=== PATIENT | female | born 1990 | race Caucasian/White ===

== ENCOUNTER → 2019-01-04 09:23 | Outpatient (CLI) | payer BC, SELFPAY ==
--- NOTE | 2019-01-04 09:29 | XR_ITS ---
XR knee RT 3V HISTORY: ITS.REASON: ACUTE RT KNEE PAIN' ORDERING PHYSICIAN: MARCO ANTONIO Adamson PATIENT AGE: 28 years COMPARISON: None FINDINGS: No fracture or dislocation. No lytic or blastic change. Normal mineralization. No significant arthritic changes evident. No other significant findings IMPRESSION: Negative Knee
== END ==
PROVIDERS: PCP Family Medicine; Visit Provider Physician Assistant
DX: M25.561 Pain in right knee (principal)
CPT/HCPCS: 73562

== ENCOUNTER → 2019-01-12 08:24 | Outpatient (CLI) | payer BC, SELFPAY ==
[2019-01-12 08:32] LABS: Microscopic, Urine URINE MICROSCOPIC (MICROSCOPIC)
[2019-01-12 08:56] LABS: Appearance,Urine CLEAR (Clear); Bilirubin,Urine Negative (Negative); Blood, Urine Negative (Negative); Color,Urine YELLOW (Yellow); Glucose,Urine (UA) Negative (Negative); Ketones,Urine Negative (Negative); Leukocyte Esterase,Urine TRACE (Negative); Nitrate,Urine Negative (Negative); PH,Urine 6.5 (5.0-8.5); Protein,Urine Negative (Negative); Specific Gravity, Urine 1.015 (1.005-1.030); Urobilinogen,Urine 0.2 EU/dl (0.2)
[2019-01-12 09:08] LABS: Bacteria,Urine 2+ /lpf
[2019-01-12 09:19] LABS: Basophils % 0.5 % (0.1-2.0); Eosinophils # 0.1 K/mm3 (0.0-0.4); Eosinophils % 2.1 % (0.1-12.0); Hematocrit 42.1 % (37.0-47.0); Hemoglobin 14.1 g/dL (12.2-16.2); Lymphocytes # 1.9 K/mm3 (0.7-4.5); Lymphocytes % 29.8 % (10-50); Mean Corpuscular HGB Conc 33.4 g/dL (31.8-35.4); Mean Corpuscular Hemoglobin 31.2 pg (27.0-31.2); Mean Corpuscular Volume 93.3 fl (81-99); Mean Platelet Volume 7.6 fl (7.4-10.4); Monocytes # 0.4 K/mm3 (0.1-1.0); Monocytes % 6.1 % (1.7-9.3); Neutrophils % 61.5 % (37.0-80.0); Platelet Count 339 K/mm3 (142-424); Red Blood Count 4.51 M/mm3 (4.20-5.40); Red Cell Distribution Width 13.3 % (11.5-17.5); White Blood Count 6.5 K/mm3 (4.8-10.8)
[2019-01-12 10:36] LABS: Alanine Aminotransferase 25 U/L (12-78); Albumin/Globulin Ratio 0.9 (1.1-1.8); Alkaline Phosphatase 64 U/L (46-116); Anion Gap 10.5 mEq/L (5-15); Aspartate Amino Transferase 7 U/L (15-37); Bilirubin,Total 0.4 mg/dL (0.2-1.0); Blood Urea Nitrogen 12 mg/dL (7-18); Calcium 8.7 mg/dL (8.5-10.1); Carbon Dioxide 26 mmol/L (21.0-32.0); Chloride 106 mmol/L (98-107); Creatine Kinase 25 U/L (26-192); Creatinine,Serum 0.61 mg/dL (0.55-1.02); Estimated Glomerular Filt Rate 118 ml/min (>60); GFR (African American) 142 ML/MIN (>60); Gamma Glutamyl Transpeptidase 19 U/L (5-55); Globulin 3.4 gm/dl (1.3-3.2); Glucose 84 mg/dL (74-106); Lactate Dehydrogenase 128 U/L (82-234); Phosphorous 3.4 mg/dL (2.4-4.9); Potassium 4.5 mmoL/L (3.5-5.1); Sodium 138 mmol/L (136-145); Total Protein,Serum 6.4 gm/dL (6.4-8.2); Uric Acid 3.2 mg/dL (2.6-7.2)
[2019-01-12 11:09] LABS: Hemoglobin A1C 4.9 % (0.0-7.0)
[2019-01-12 11:51] LABS: Creatinine,Urine Random 88 mg/dL (20-320); Total Protein,Urine Random 10.3 mg/dL (0.0-11.9)
== END ==
PROVIDERS: Visit Provider Transplant Surgery
DX: Z00.5 Encounter for examination of potential donor of organ and tissue (principal)
CPT/HCPCS: 36415; 80053; 81001; 82550; 82570; 82977; 83036; 83615; 84100; 84155; 84550; 85025; 86900; 86901; 87086

== ENCOUNTER 2019-01-17 16:46 | Outpatient (RCR) | payer BC, SELFPAY | END 2019-01-17 16:55 | disposition home or self-care (01) | LOC: PT 16:46 | PROVIDERS: Visit Provider Physician Assistant | DX: M25.561 Pain in right knee (principal) | CPT/HCPCS: 97163 ==

== ENCOUNTER → 2019-02-06 08:46 | Outpatient (CLI) | payer BC, SELFPAY ==
--- NOTE | 2019-02-06 08:50 | XR_ITS ---
XR knee RT 4V HISTORY: ITS.REASON: right knee pain ORDERING PHYSICIAN: Jimmy Feng MD PATIENT AGE: 28 years COMPARISON: 01/04/2019 FINDINGS: No fracture or dislocation. No lytic or blastic change. Normal mineralization. No significant arthritic changes evident. No other significant findings IMPRESSION: Negative Knee
== END ==
PROVIDERS: PCP Family Medicine; Visit Provider Orthopaedic Surgery
DX: M25.561 Pain in right knee (principal)
CPT/HCPCS: 73564

== ENCOUNTER → 2019-02-16 13:26 | Outpatient (CLI) | payer BC, SELFPAY ==
--- NOTE | 2019-02-16 13:27 | MR_ITS ---
MR knee RT wo con Ordering Physician: Jimmy Feng MD Patient Age: 28 years: Female HISTORY: ITS.REASON: evaluate for meniscal tear Right knee pain since November.. Pain at the lateral aspect of right knee. No known injury. TECHNIQUE: Multiplanar multisequence imaging on 1.5 Lilliana Siemens, MRI COMPARISON :X-ray right knee 02/06/2019 FINDINGS : Re: Lateral Knee Pain.: Lateral meniscus appears intact. No good evidence of meniscal tear. The Lateral compartment is well-maintained. Cartilage well-maintained.No osteochondral defect. No reactive bone signal changes. Medial compartment and medial meniscus appear intact as well. Normal relationships. Borderline to mild thinning question/suggestion posterior patella in its midportion and extending towards medial facet as suggested on axial slice 11. However less convincing on the sagittal T2 weighted image slice 14 Patellar tendon and quadriceps tendon appears satisfactory. Medial collateral ligament and lateral collateral ligament appear satisfactoryqq. ACL and PCL intact. The fibular, tibial articulation satisfactory. Popliteus tendon overall satisfactory some areas of upper normal signal along its course. IMPRESSION: ...... 1. No prominent findings.No meniscal tear. 2. Cartilage well-maintained both the lateral and medial compartment No osteochondral defects 3. Perhaps mild chondral thinningposterior patella-midportion and extending towards facet is seen on axial image 11 Scant increased joint fluid most notable here. 4. Cruciate and collateral ligaments intact
== END ==
PROVIDERS: PCP Family Medicine; Visit Provider Orthopaedic Surgery
DX: M25.561 Pain in right knee (principal); G89.29 Other chronic pain
CPT/HCPCS: 73721

== ENCOUNTER → 2019-06-19 13:10 | Outpatient (CLI) | payer BC, SELFPAY ==
--- NOTE | 2019-06-19 13:20 | US_ITS ---
PROCEDURE: US SOFT TISSUE HEAD AND NECK CLINICAL INDICATION: ENLARGED LYMPH NODE IN NECK COMPARISON: No exams were available for comparison FINDINGS: General survey is performed of the left neck. Several hypoechoic lymph nodes are present ranging in size from 1.6 x 0 point 6 cm to 2.7 x 1 cm. In the right neck there is a node which measures up to 1.8 by 0.7 cm. The submandibular glands and parotid glands have an unremarkable appearance. IMPRESSION: Cervical adenopathy. Consider CT for more thorough evaluation if the nodes do not decrease in size with treatment Dictated by: Sam Yeung MD 06/19/2019 17:17 Electronically signed by Sam Yueng MD in [place] 06/19/2019 17:17
== END ==
PROVIDERS: PCP Family Medicine; Visit Provider Physician Assistant
DX: R59.0 Localized enlarged lymph nodes (principal)
CPT/HCPCS: 76536

== ENCOUNTER → 2019-06-21 16:43 | Outpatient (CLI) | payer BC, SELFPAY ==
[2019-06-23 13:49] LABS: Antistreptolysin O Ab 425.3 IU/mL (0.0-200.0); Cytomegalovirus (CMV) Ab, IgG <0.60 U/mL (0.00-0.59); Cytomegalovirus (CMV) Ab, IgM <30.0 AU/mL (0.0-29.9)
[2019-06-23 15:38] LABS: EBV Ab VCA, IgG <18.0 U/mL (0.0-17.9); EBV Ab VCA, IgM <36.0 U/mL (0.0-35.9)
== END ==
PROVIDERS: Visit Provider Physician Assistant
DX: R59.0 Localized enlarged lymph nodes (principal)
CPT/HCPCS: 36415; 86060; 86644; 86645; 86665

== ENCOUNTER → 2019-06-26 10:15 | Outpatient (CLI) | payer BC, SELFPAY ==
--- NOTE | 2019-06-26 10:26 | CT_ITS ---
PROCEDURE: CT SOFT TISSUE NECK W CON CLINICAL HISTORY: CERVICAL LYMPHADENOPATHY COMPARISON: No exams were available for comparison TECHNIQUE: Oral Contrast: None IV Contrast: 75 cc Axial images obtained with sagittal and coronal reformats. All CT scans at the facility use one or more dose reduction, viz: automated exposure control, ma/kV adjustment per patient size (including targeted exams where dose is matched to indication, i.e. head), or iterative reconstruction technique. FINDINGS: Salivary glands are normal. The anterior aspect of the orbital globes are not in the field of view. The retro bulbar areas appear to be normal. Oral cavity structures and palatine tonsils are normal. The tongue base, epiglottis, laryngeal area and thyroid gland are normal. Airway structures are patent. Developmental finding of left vertebral artery arises from the aortic arch. Vessels are otherwise unremarkable. There are level 1 and level 2 lymph nodes bilaterally and on the left side there are level 3, level 4 and level 5 B lymph nodes. Some of these lymph nodes are round in shape with absence of the fatty hilum. The largest left to a lymph node shows a short axis diameter of 11.7 millimeters and the largest left 5 B lymph node measures 11.4 millimeters in short axis diameter. The lymph nodes are otherwise homogeneous with smooth margins. Visualized osseous structures are unremarkable. IMPRESSION: Lymph nodes as described above which are larger and more numerous on the left side. There are no other ancillary inflammatory changes or fluid collections. Etiology is nonspecific and metastatic disease, lymphoma or inflammatory reactive adenitis are possibilities. However considering size and ancillary findings I would suggest ultrasound-guided tissue sampling perhaps the larger left 5 B lymph node on image number 66 from series 3. Dictated by: Arden Diaz 06/26/2019 11:32 Electronically signed by Arden Diaz in [place] 06/26/2019 11:32
== END ==
PROVIDERS: PCP Family Medicine; Visit Provider Physician Assistant
DX: R59.0 Localized enlarged lymph nodes (principal)
CPT/HCPCS: 70491; Q9967

== ENCOUNTER → 2019-07-10 12:36 | Outpatient (CLI) | payer BC, SELFPAY ==
--- NOTE | 2019-07-10 12:40 | US_ITS ---
PROCEDURE: US FNA LYMPH NODE CLINICAL INDICATION: ENLARGED LYMPH NODE Cervical adenopathy COMPARISON: US SOFT TISSUE HEAD AND NECK from 06/19/2019 CT SOFT TISSUE NECK W CON from 06/26/2019 TECHNIQUE: Following obtaining informed consent, using aseptic technique and local anesthesia with buffered lidocaine, fine-needle aspiration was performed of the nodule of interest using sonographic guidance. Four passes were made into the nodule with a 21-gauge needle. To the aspirates was foot in cytology solution and to of the aspirates was put in the RPMI solution. FINDINGS: CYTOLOGY: Polymorphous lymphocytes present. Please see pathology report IMPRESSION: Uneventful ultrasound-guided fine needle aspiration of lymph nodes in the left posterior neck showing polymorphous lymphocytes The patient tolerated the procedure well without evidence of immediate complications and left the ultrasound suite in stable condition. Dictated by: Sam Yeung MD 07/13/2019 09:30 Electronically signed by Sam Yeung MD in [place] 07/13/2019 09:30
== END ==
PROVIDERS: PCP Physician Assistant; Visit Provider Physician Assistant
DX: R59.0 Localized enlarged lymph nodes (principal)
CPT/HCPCS: 10005; 76942

== ENCOUNTER → 2019-08-06 15:55 | Outpatient (CLI) | payer BC, SELFPAY ==
--- NOTE | 2019-08-06 16:17 | ECG_ITS ---
APPROVED REPORT Exam: Resting ECG HR:69 bpm ECG Measurements Heart Rate 69 AXES CA 128 P 38 QRSd 78 QRS 31 QT 398 T 25 QTc 426 <Conclusion> Normal sinus rhythm Normal ECG Electronically signed by : Yousif Billingsley, 08/07/2019 15:27:10
[2019-08-06 16:40] LABS: Basophils % 0.6 % (0.1-2.0); Eosinophils % 0.4 % (0.1-12.0); Hematocrit 41.6 % (37.0-47.0); Hemoglobin 13.9 g/dL (12.2-16.2); Lymphocytes # 1.4 K/mm3 (0.7-4.5); Lymphocytes % 44.6 % (10-50); Mean Corpuscular HGB Conc 33.5 g/dL (31.8-35.4); Mean Corpuscular Hemoglobin 29.7 pg (27.0-31.2); Mean Corpuscular Volume 88.6 fl (81-99); Mean Platelet Volume 8.2 fl (7.4-10.4); Monocytes # 0.3 K/mm3 (0.1-1.0); Monocytes % 8.4 % (1.7-9.3); Neutrophils # 1.5 K/mm3 (1.8-7.8); Platelet Count 265 K/mm3 (142-424); Red Blood Count 4.69 M/mm3 (4.20-5.40); Red Cell Distribution Width 12.6 % (11.5-17.5); White Blood Count 3.2 K/mm3 (4.8-10.8)
[2019-08-06 18:43] LABS: HCG,Quantitative 0 mIU/mL
== END ==
PROVIDERS: Visit Provider Otolaryngology
DX: Z01.818 Encounter for other preprocedural examination (principal); R59.0 Localized enlarged lymph nodes
CPT/HCPCS: 36415; 84702; 85025; 93005

== ENCOUNTER → 2019-08-30 14:24 | Outpatient (CLI) | payer BC, SELFPAY ==
--- NOTE | 2019-08-30 14:30 | XR_ITS ---
PROCEDURE: XR CHEST 2V CLINICAL HISTORY: swollen lymph nodes COMPARISON: No exams were available for comparison FINDINGS: The cardiomediastinal silhouette and pulmonary vascularity are within normal limits. The lungs are clear without infiltrates, suspicious nodules, or pleural effusions. No acute bony abnormalities. IMPRESSION: No acute findings. Dictated by: Sam Yeung MD 08/30/2019 14:46 Electronically signed by Sam Yeung MD in [place] 08/30/2019 14:46
[2019-08-30 15:06] LABS: Basophils % 0.4 % (0.1-2.0); Hematocrit 37.9 % (37.0-47.0); Hemoglobin 12.8 g/dL (12.2-16.2); Lymphocytes # 1.3 K/mm3 (0.7-4.5); Lymphocytes % 41.9 % (10-50); Mean Corpuscular HGB Conc 33.7 g/dL (31.8-35.4); Mean Platelet Volume 8.5 fl (7.4-10.4); Monocytes # 0.2 K/mm3 (0.1-1.0); Monocytes % 7.3 % (1.7-9.3); Neutrophils # 1.5 K/mm3 (1.8-7.8); Neutrophils % 49.4 % (37.0-80.0); Platelet Count 267 K/mm3 (142-424); Red Blood Count 4.26 M/mm3 (4.20-5.40); Red Cell Distribution Width 13.1 % (11.5-17.5)
[2019-09-03 15:09] LABS: Antichromatin Antibodies <0.2 AI (0.0-0.9); RA Latex Turbid. 15.6 IU/mL (0.0-13.9); RNP Antibodies 0.2 AI (0.0-0.9); Sjogren's Anti-SS-A <0.2 AI (0.0-0.9); Sjogren's Anti-SS-B <0.2 AI (0.0-0.9)
[2019-09-04 14:45] LABS: Anti-DNA (DS) Ab Qn <1 IU/mL (0-9)
[2019-09-09 13:48] LABS: APTT 26.6; Prothrombin Time 10.3; Thrombin Time 16.2
[2019-09-09 13:49] LABS: Anti-Cardiolipin Antibody IgG <10; Anti-Cardiolipin Antibody IgM 13; Beta-2 Glycoprotein I Ab, IgG <10; Beta-2 Glycoprotein I Ab, IgM <10
[2019-09-09 13:50] LABS: Beta-2 Glycoprotein I Ab, IgA <10
== END ==
PROVIDERS: PCP Family Medicine; Visit Provider Otolaryngology
DX: L04.9 Acute lymphadenitis, unspecified (principal); R59.9 Enlarged lymph nodes, unspecified
CPT/HCPCS: 36415; 71046; 85025; 85597; 85598; 85610; 85613; 85670; 85730; 86146; 86147; 86225; 86235; 86431

== ENCOUNTER → 2019-10-01 09:56 | Outpatient (CLI) | payer BC, SELFPAY ==
--- NOTE | 2019-10-01 10:05 | CT_ITS ---
PROCEDURE: CT ABDOMEN PELVIS WO/W CON CLINICAL INDICATION: SWELLING LYMPH NODES Adenopathy COMPARISON: No exams were available for comparison TECHNIQUE: IV Contrast: 75ML OPTIRAY 350 Oral Contrast none Axial images obtained with sagittal and coronal reformats. All CT scans at the facility use one or more dose reduction, viz: automated exposure control, ma/kV adjustment per patient size (including targeted exams where dose is matched to indication, i.e. head), or iterative reconstruction technique. FINDINGS: LOWER THORAX: No acute finding None ABDOMEN & PELVIS: There is a small hypodensity in the right hepatic lobe inferiorly at 4 mm nonspecific too small to categorize. Liver is otherwise unremarkable. There is some curvilinear density in the fundus of the gallbladder which could be due to stones and/or sludge in may be better evaluated ultrasound a clinically desired. Spleen, adrenal glands, pancreas, and kidneys have an unremarkable appearance. There is no evidence of abdominal or retroperitoneal adenopathy. No pelvic adenopathy. No enlarged inguinal nodes. There is a mild amount of retained colonic feces. No evidence of appendicitis, intestinal obstruction, or free air. No acute bony anomaly. IMPRESSION: No acute finding. No adenopathy apparent. Subtle hypodensity right hepatic lobe too small to categorize and could be due to small cyst at 4 mm. Possible cholelithiasis Dictated by: Sam Yeung MD 10/02/2019 11:58 Electronically signed by Sam Yeung MD in [place] 10/02/2019 11:58
--- NOTE | 2019-10-01 10:05 | CT_ITS ---
PROCEDURE: CT CHEST WO/W CON CLINCAL INDICATION: SWOLLEN LYMPH NODES Lymphadenopathy the COMPARISON: CT ABDOMEN PELVIS WO/W CON from 10/01/2019 TECHNIQUE: IV Contrast: 75ml Optiray 350 Axial images obtained with sagittal and coronal reformats. All CT scans at the facility use one or more dose reduction, viz: automated exposure control, ma/kV adjustment per patient size (including targeted exams where dose is matched to indication, i.e. head), or iterative reconstruction technique. FINDINGS: Residual thymic tissue noted within the mediastinum. Normal heart size. Pre and post enhanced images show no evidence hilar or mediastinal adenopathy. No axillary adenopathy. The the the there nodularity in the left upper lobe measuring 5 mm associated with an adjacent linear opacity. The remaining lungs are clear. No central obstructing lesions. Upper abdominal images are unremarkable. There are mild degenerative changes in the thoracic spine. No acute bony anomalies. IMPRESSION: 1. No mediastinal or hilar or axillary adenopathy. 2. 5 mm left upper lobe nodule so shaded with a linear opacity nonspecific and could be postinflammatory scarring. Six-month follow-up may confirm stability. Dictated by: Sam Yeung MD 10/02/2019 11:47 Electronically signed by Sam Yeung MD in [place] 10/02/2019 11:47
== END ==
PROVIDERS: PCP Family Medicine; Visit Provider Internal Medicine Medical Oncology
DX: R59.0 Localized enlarged lymph nodes (principal)
CPT/HCPCS: 71270; 74178; Q9967

== ENCOUNTER 2019-10-04 12:26 | Day surgery (SDC) | payer BC, SELFPAY ==
[2019-10-04 12:44] VITALS: BMI 31.8
[2019-10-04 12:57] VITALS: BP 104/65; PULSE 84; RESP 18; TEMP 36.7; O2SAT 100
[2019-10-04 12:57] LABS: Urine Pregnancy, HCG Qual. Negative (Negative)
--- NOTE | 2019-10-04 16:21 | SUR.PREOP ---
Pt. was pre-op'd per protocol, When Dr. Collins assessed pt. he believed she did not need the bone marrow biopsy at this time. As a result the procedure was cancelled.
== END 2019-10-04 16:30 ==
LOC: OUTP 12:26
PROVIDERS: Internal Medicine Medical Oncology; Pathology Anatomic Pathology & Clinical Pathology; PCP Family Medicine; Visit Provider Pathology Anatomic Pathology & Clinical Pathology
DX: Z53.8 Procedure and treatment not carried out for other reasons (principal)
CPT/HCPCS: 38221; 81025

== ENCOUNTER → 2019-11-12 16:38 | Outpatient (CLI) | payer BC, SELFPAY ==
[2019-11-12 16:42] LABS: Microscopic, Urine URINE MICROSCOPIC (MICROSCOPIC)
[2019-11-12 16:52] LABS: Appearance,Urine CLEAR (Clear); Bilirubin,Urine Negative (Negative); Blood, Urine Negative (Negative); Color,Urine YELLOW (Yellow); Glucose,Urine (UA) Negative (Negative); Ketones,Urine Negative (Negative); Leukocyte Esterase,Urine TRACE (Negative); Nitrate,Urine Negative (Negative); Protein,Urine Negative (Negative); Specific Gravity, Urine 1.015 (1.005-1.030); Urobilinogen,Urine 0.2 EU/dl (0.2)
[2019-11-12 17:06] LABS: Bacteria,Urine Trace /lpf; Squamous Epithelial Cell,Urine Occasional #/hpf (0-5)
== END ==
PROVIDERS: Visit Provider Internal Medicine
DX: R76.8 Other specified abnormal immunological findings in serum (principal)
CPT/HCPCS: 81001

== ENCOUNTER → 2019-11-16 13:17 | Outpatient (CLI) | payer BC, SELFPAY ==
[2019-11-16 13:55] LABS: Basophils % 0.5 % (0.1-2.0); Eosinophils % 0.7 % (0.1-12.0); Hemoglobin 13.9 g/dL (12.2-16.2); Lymphocytes # 1.7 K/mm3 (0.7-4.5); Lymphocytes % 29.4 % (10-50); Mean Corpuscular HGB Conc 31.6 g/dL (31.8-35.4); Mean Corpuscular Hemoglobin 29.5 pg (27.0-31.2); Mean Corpuscular Volume 93.3 fl (81-99); Monocytes # 0.4 K/mm3 (0.1-1.0); Neutrophils # 3.7 K/mm3 (1.8-7.8); Neutrophils % 62.4 % (37.0-80.0); Platelet Count 303 K/mm3 (142-424); Red Blood Count 4.72 M/mm3 (4.20-5.40); Red Cell Distribution Width 13.6 % (11.5-17.5); White Blood Count 5.9 K/mm3 (4.8-10.8)
== END ==
PROVIDERS: Visit Provider Internal Medicine Medical Oncology
DX: D72.819 Decreased white blood cell count, unspecified (principal)
CPT/HCPCS: 36415; 85025

== ENCOUNTER 2020-01-07 16:14 | Emergency (ER) | payer BC, SELFPAY ==
[2020-01-07 16:22] VITALS: BMI 32.9
[2020-01-07 16:29] VITALS: BP 113/66; PULSE 87; RESP 20; TEMP 36.7; O2SAT 99; BMI 32.9
[2020-01-07 16:35] LABS: Apearance,Urine Cloudy (Clear); Color,Urine Yellow (Yellow); PH,Urine 5.5 (5.0-8.5)
[2020-01-07 16:36] LABS: Bilirubin,Urine Negative (Negative); Blood, Urine Negative (Negative); Glucose,Urine (UA) Negative (Negative); Ketones,Urine Negative (Negative); Protein,Urine Negative (Negative); UTC Leukocyte Esterase,Urine 1+ (Negative); UTC Nitrate,Urine Negative (Negative); Urobilinogen,Urine 0.2 EU/dl (0.2)
--- NOTE | 2020-01-07 16:41 | HMH.EDUTC ---
[facility] – [place] Disposition Clinical Impression: UTI (urinary tract infection) Qualifiers: Urinary tract infection type: site unspecified Hematuria presence: without hematuria Qualified Code(s): N39.0 - Urinary tract infection, site not specified Disposition: Home, Self-Care Condition on Discharge: Good Instructions: DI for Urinary Tract Infection (UTI), Urinary Tract Infection, Nitrofurantoin Additional Instructions: *Increase fluids. Water not Soda or Tea *Start antibiotic immediately and be sure to take as ordered for the FULL length of time although you should start to see improvement over the next 48 hours *Pyridium as needed Remember this medication will turn your urine [place]. This is normal but it will stain what ever it gets on *You should not use Pyridium for more than 48 hours. If so , follow up with your primary physician to review urine culture and ensure that antibiotic is adequate for infection *Be SURE to follow up anytime for new or worsening symptoms with your family doctor. AND in 48 hours for urine culture results with your family doctor, if you do not have a doctor then you may call back to the [facility] for urine culture results and further treatment. We do recommend that you choose and establish care with a Primary Care Physician. AND follow up with them in 10-14 days to repeat UA to ensure infection is resolved and blood no longer present *Be sure to let your PCP know that we sent urine cultures from the [facility] so they can follow up to ensure that you area the on the correct antibiotic Call your doctor office and make appointment for 48 hours (2 days from today) to follow up and get the results of your urine culture and further treatment Take medication as prescribed Return if needed Make sure to follow up for culture results and further treatment if needed Prescriptions: Nitrofurantoin Monohyd/M-Cryst [Macrobid 100 mg Capsule] 100 mg PO BID 10 Days #20 cap Transmission Status: Pending to [id number] Referrals: Sebastian Fritz MD [Primary Care Provider] - As needed Time of Disposition: 16:47 Medical Decision Making - Naun Inquiry Pt receiving controlled substance: No Naun was queried for this patient: No Vital Signs: 01/07/20 16:29 Temperature 98.1 F Temperature Source Oral Pulse Rate [Right Brachial] 87 Respiratory Rate 20 Blood Pressure [Right Arm] 113/66 Blood Pressure Mean [Right Arm] 81 Blood Pressure Source [Right Arm] Automatic Cuff Blood Pressure Position [Right Arm] Sitting 02 Sat by Pulse Oximetry 99 Oxygen Delivery Method Room Air - Lab Data Lab results reviewed: Yes: I reviewed the patient's lab results. Lab Results 01/07/20 16:22: Urine Color Yellow, Urine Appearance Cloudy, Urine pH 5.5, Ur Specific [place] 1.010, Urine Protein Negative, Urine Glucose (UA) Negative, Urine Ketones Negative, Urine Blood Negative, Urine Nitrate Negative, Urine Bilirubin Negative, Urine Urobilinogen 0.2, Ur Leukocyte Esterase 1+ A [facility] [place] HPI - General Stated complaint: Posible UTI Time Seen by Provider: 01/07/20 16:41 Mode of Arrival: Ambulatory Source of Information: Patient Limitations: No Limitations Description of Symptoms (Recalled from Triage Doc. by RN): PATIENT C/O BURNING WITH URINATION AND LOWER BACK/FLANK PAIN SINCE THIS MORNING; DENIES FEVER HEENT Symptoms (Recalled from RN notes): No Resp Symptoms (Recalled from RN notes): No Skin Symptoms (Recalled from RN notes): No MS Symptoms (Recalled from RN notes): No Functional Status (Recalled from RN notes): WNL - History of Present Illness Provider Complaint: Patient state that she woke up this morning having achy like pain in her lower back area like she has had before with UTI States that she took some Motrin and it didnt help so she was pretty sure that she was getting a UTI States that as the day on she continued to have pain on and off in her lower back area Denies injury, denies radiation of pain noticed that her urine looked dark
[2020-01-07 16:51] VITALS: BP 113/66; PULSE 87; RESP 20; TEMP 36.7; O2SAT 99
== END 2020-01-07 16:52 | disposition home or self-care (01) ==
PROVIDERS: Emergency Provider Nurse Practitioner; PCP Family Medicine
DX: N30.00 Acute cystitis without hematuria (principal); I48.91 Unspecified atrial fibrillation; J45.909 Unspecified asthma, uncomplicated; Z88.0 Allergy status to penicillin
CPT/HCPCS: 81003; 87086; 99201

== ENCOUNTER 2020-08-04 18:25 | Emergency (ER) | payer BC, SELFPAY ==
[2020-08-04 18:55] VITALS: BP 111/78; PULSE 68; RESP 20; TEMP 37; O2SAT 100; BMI 34.3
--- NOTE | 2020-08-04 19:15 | HMH.EDUTC ---
[facility] – [place] Disposition Clinical Impression: Sinusitis Qualifiers: Sinusitis location: unspecified location Chronicity: unspecified Qualified Code(s): J32.9 - Chronic sinusitis, unspecified Disposition: Home, Self-Care Condition on Discharge: Good Instructions: Sinusitis, Sinus Headache, DI for Sinusitis, Azithromycin Additional Instructions: *Monitor Temp, Over the counter Motrin or Tylenol as directed/as needed Tylenol every 4 hours and Motrin every 6 hours (as long as your family doctor has told you that you can take it) for fever or pain. and straight to ER if unable to lower temp less than 101.0 after medication given *Warm salt water gargles may help to soothe the throat *Throat Lozenges *Warm fluids like tea with honey may help to soothe the throat *Sleep elevated *Humidifier/Vaporizer *Flonase 2 sprays in each nostril daily but be aware that it may take 2-3 days before you notice improvement Follow up IMMEDIATELY for new or worsening symptoms or no Noticeable improvement over the next 48-72 hours. 911 for difficulty breathing or swallowing Prescriptions: Fluticasone Propionate [Flonase 50mcg nasal spray 16gm] 1 - 2 spr NS DAILY #1 bottle [facility] methylPREDNISolone [Medrol 4mg tab] 4 mg PO DIRECTED #21 tab Transmission Status: [facility] Azithromycin [Z-Joaquin 250mg Tab] 250 mg PO DIRECTED #6 tab Transmission Status[facility] Referrals: Sebastian Fritz MD [Primary Care Provider] - Time of Disposition: 19:19 Medical Decision Making - Naun Inquiry Pt receiving controlled substance: No Naun was queried for this patient: No Vital Signs: 08/04/20 18:55 Temperature 98.6 F Temperature Source Oral Pulse Rate [Right Brachial] 68 Respiratory Rate 20 Blood Pressure [Right Arm] 111/78 Blood Pressure Mean [Right Arm] 89 Blood Pressure Source [Right Arm] Automatic Cuff Blood Pressure Position [Right Arm] Sitting 02 Sat by Pulse Oximetry 100 Oxygen Delivery Method Room Air [facility] [place] HPI - General Stated complaint: possible sinus infection Time Seen by Provider: 08/04/20 19:15 Mode of Arrival: Ambulatory Source of Information: Patient Limitations: No Limitations Description of Symptoms (Recalled from Triage Doc. by RN): PATIENT C/O HEADACHE, CONGESTION AND SINUS PRESSURE X 2 WEEKS HEENT Symptoms (Recalled from RN notes): Yes Resp Symptoms (Recalled from RN notes): No Skin Symptoms (Recalled from RN notes): No MS Symptoms (Recalled from RN notes): No Functional Status (Recalled from RN notes): WNL - History of Present Illness Provider Complaint: Patient states that she has been having sinus pain and pressure for about 2 weeks States that she gets a sinus infection about this time every year and has to come in and get medication States that she feels the pressure behind her eyes and has yellowish green mucous - Related Data Home Medications Medication Instructions Recorded Confirmed norethindrone 1 mg-ethinyl 1 tab PO DAILY tab 11/16/19 08/04/20 estradiol 20 mcg (21)-iron 75 mg (7) tablet Previous Rx's Medication Instructions Recorded Azithromycin [Z-Joaquin 250mg Tab] 250 mg PO DIRECTED #6 tab 08/04/20 Fluticasone Propionate [Flonase 1 - 2 spr NS DAILY #1 bottle 08/04/20 50mcg nasal spray 16gm] methylPREDNISolone [Medrol 4mg 4 mg PO DIRECTED #21 tab 08/04/20 tab] Allergies Allergy/AdvReac Type Severity Reaction Status Date / Time Penicillins Allergy Verified 12/10/19 15:50 - Worker's Comp Is this a Worker's Comp case?: Yes [facility] History - Hepatitis A Screen Drug use history?: No High risk sexual behaviors?: No History of sexually transmitted infection?: No Currently employed?: No Childcare worker?: No Do you have indoor plumbing?: Yes Do you have electricity?: Yes Attestation statement:: This patient has been screened for Hepatitis A risk factors. I
[2020-08-04 19:27] VITALS: BP 111/78; PULSE 68; RESP 20; TEMP 37; O2SAT 100
== END 2020-08-04 19:39 | disposition home or self-care (01) ==
PROVIDERS: Emergency Provider Nurse Practitioner; PCP Family Medicine
DX: J32.9 Chronic sinusitis, unspecified (principal); J45.909 Unspecified asthma, uncomplicated
CPT/HCPCS: 99201

== ENCOUNTER 2022-08-10 17:20 | Emergency (ER) | payer BC, SELFPAY ==
[2022-08-10 18:20] VITALS: BP 129/82; PULSE 69; RESP 18; TEMP 36.7; O2SAT 98; BMI 32.8
--- NOTE | 2022-08-10 18:22 | EXP.UTC ---
Discharge Plan Disposition Patient Disposition: Home, Self-Care Condition: Good Prescriptions Prescriptions: New azithromycin [Zithromax] 250 mg tablet 250 mg PO UD DOSE PK Qty: 6 0RF Rx Instructions: Take two (2) tablets today, then one (1) tablet days #2 thru #5 methylprednisolone 4 mg Tablets,Dose Pack 4 mg PO DIRECTED Qty: 21 0RF lxuhjmvoignyebs-ylxuvvivu-VD [Bromfed DM] 2-30-10 mg/5 mL Syrup 5 ml PO Q6H PRN (Reason: Cough) Qty: 240 0RF No Action norethindrone-e.estradiol-iron 1 mg-20 mcg (21)/75 mg (7) tablet 1 tab PO DAILY azithromycin 250 MG tablet 250 mg PO DIRECTED Qty: 6 0RF Rx Instructions: Take two (2) tablets on day #1, then one (1) tablet day #2 thru #5 methylprednisolone 4 MG tablet 4 mg PO DIRECTED Qty: 21 0RF Rx Instructions: Take as directed on package instructions fluticasone propionate 120 SPR/BOT bottle 1 - 2 spr NS DAILY Qty: 1 0RF Rx Instructions: each nostril daily Referrals Follow up/Referrals: Sebastian Fritz MD [Primary Care Provider] - See instructions Activity Restrictions/Add. Instructions Additional Instructions/Restrictions: Drink plenty of fluids. Take tylenol or ibuprofen for pain or fever. Take the medications as directed. Follow up with your regular doctor. GO TO THE ER FOR ANY WORSENING SYMPTOMS Clinical Impressions Clinical Impression: Acute bronchitis, Viral syndrome Stand Alone Forms Stand Alone Forms: Work/School Release Instructions Patient Instructions: DI for Acute Bronchitis, DI for Viral Syndrome Discharge ED Provider: Eldon Sommers [facility] General Stated complaint: congestion, h/a, cough, sore throat, fever/chills Time Seen by Provider: 08/10/22 18:22 History of Present Illness Provider Complaint: She states that for the past 2 days she has had chest and sinus congestion, cough, low grade fever and malaise. Related Data Home Medications Medication Instructions Recorded Confirmed norethindrone 1 mg-ethinyl 1 tab PO DAILY control 11/16/19 08/04/20 estradiol 20 mcg (21)-iron 75 mg (7) tablet Previous Rx's Medication Instructions Recorded azithromycin 250 mg tablet 250 mg PO DIRECTED #6 tabs 08/04/20 fluticasone propionate 50 1 - 2 spr NS DAILY ##1 08/04/20 mcg/actuation nasal spray,suspension methylprednisolone 4 mg tablet 4 mg PO DIRECTED #21 tabs 08/04/20 azithromycin 250 mg tablet 250 mg PO UD DOSE PK #6 tabs 08/10/22 (Zithromax) irskoahgyrzpgiy-qrvrbdyiaojdjra-JM 5 ml PO Q6H PRN Cough #240 mL 08/10/22 2 mg-30 mg-10 mg/5 mL oral syrup (Bromfed DM) methylprednisolone 4 mg tablets in 4 mg PO DIRECTED #21 tabs 08/10/22 a dose pack Allergies Allergy/AdvReac Type Severity Reaction Status Date / Time Penicillins Allergy Verified 08/10/22 18:24 PFSH PFSH Social History Smoking Status: Never smoker second hand exposure: No alcohol intake: never substance use type: denies use current occupational status: other Travel in the last 8 weeks: None housing: house current occupation: [employer] current occupational exposures/hazards: No caffeine: No ROS Obtained: Yes All systems reviewed & no additional complaints except as documented Constitutional Constitutional: Reports chills and Reports fever(s) Eyes Eyes: Denies eye discharge ENT Ears, Nose, Mouth, and Throat: Reports as per HPI Cardiovascular Cardiovascular: Denies chest pain Respiratory Respiratory: Denies chest congestion and Reports cough Gastrointestinal Gastrointestingal: Reports nausea; Denies abdominal pain, constipation, cramping, diarrhea or vomiting Musculoskeletal Musculoskeletal: Denies arthralgias Integumentary/Breasts Skin/Breast: Denies rash Neurologic Neurologic: Denies paresthesias Physical Exam General General appearance: alert and in no apparent distress Head H
[2022-08-10 19:02] LABS: UTC Strep Screen (Rapid) Negative (Negative)
[2022-08-10 19:03] LABS: UTC Influenza A Antigen Negative (Negative); UTC Influenza B Antigen Negative (Negative)
[2022-08-10 19:12] VITALS: BP 129/82; PULSE 69; RESP 18; TEMP 36.8
[2022-08-10 19:30] LABS: Adenovirus,PCR Not Detected (NotDetected); Bordetella Pertussis Not Detected (NotDetected); Chlamydophila Pneumoniae, PCR Not Detected (NotDetected); Coronavirus 19, PCR Not Detected (NotDetected); Coronavirus 229E Not Detected (NotDetected); Coronavirus NL63 Not Detected (NotDetected); Coronavirus OC43 Not Detected (NotDetected); Coronovirus HKU1,PCR Not Detected (NotDetected); Human Metapneumovirus Not Detected (NotDetected); Influenza A, PCR Not Detected (NotDetected); Influenza AH1, 2009 Not Detected (NotDetected); Influenza AH1, PCR Not Detected (NotDetected); Influenza AH3,PCR Not Detected (NotDetected); Influenza B, PCR Not Detected (NotDetected); Mycoplasma Pneumoniae, PCR Not Detected (NotDetected); Parainfluenza 1, PCR Not Detected (NotDetected); Parainfluenza 2, PCR Not Detected (NotDetected); Parainfluenza 3, PCR Not Detected (NotDetected); Parainfluenza 4, PCR Not Detected (NotDetected); Respiratory Syncytial Virus Not Detected (NotDetected); Rhinovirus/Enterovirus Not Detected (NotDetected)
== END 2022-08-10 19:21 | disposition home or self-care (01) ==
PROVIDERS: Emergency Provider Nurse Practitioner Family; PCP Family Medicine
DX: J20.9 Acute bronchitis, unspecified (principal)
CPT/HCPCS: 87581; 87632; 87798; 87804; 87880; 99212; C9803; G0463; U0003; U0005

== ENCOUNTER 2024-05-02 16:02 | Outpatient (CLI) | payer BC, SELFPAY ==
--- OUTSIDE RECORDS SUMMARY | 2024-05-02 16:04 | XMS_ITS | Patient Health Record ---
[facility] Organization [facility] Address [address] [facility] [address] [place] [id number] Care Team Providers Care Belt Sander Stone Name Role Phone Sebastian Fritz Primary Care Provider [phone] Francisco Stratton Unavailable [phone] Kasie Mao Unavailable [phone] ALLERGIES Allergen (clinical drug ingredient) Drug/Non Drug Allergy documented on EMR Reaction Allergy Type Onset Date Status amoxicillin Amoxicillin Unknown Drug Allergy Act lina Penicillin Unknown Drug Allergy Active RESULTS Component Value Reference Range Notes CBC Fingerstick (in house) ( Not yet reviewed by provider) Interpretation: Performing Lab: Notes/Report: wbc 6.5 3.5 - 10 lym 25.4% 15 - 50 mid 5.8% 2 - 15 gran 68.8% 35 - 80 rbc 4.71 3.5 - 5.5 hgb 14.5 11.5 - 16.5 hct 44.1 35 - 55 mcv 93.5 75 - 100 mch 30.7 25 - 35 mchc 32.9 31 - 38 plat 296 100 - 400 P-TSH reflex to FT4 Reviewed date:05/17/2023 03:24:43 PM Interpretation: Performing Lab: Notes/Report: Test performed by [facility] [address] [place] [address] , [address], [place] [address] Abelardo Phelps MD, Treating Plant Pumper CLIA: [id number] TSH reflex to FT4 1.22 0.43-5.25 mU/L P-Comprehensive Metabolic Pa alex (CMP) Reviewed date:05/17/2023 03:24:43 PM Interpretation: Performing Lab: Notes/Report: Test performed by [facility] [address] [place] [address] , [address], [place] [address] Abelardo Phelps MD, Treating Plant Pumper CLIA: [id number] Sodium 138 135-145 mEq/L Potassium 4.8 3.5-5.3 mEq/L Chloride 105 97-108 mEq/L CO2 23 22-32 mEq/L Glucose 96 65-99 mg/dL BUN 12 6-20 mg/dL Creatinine 0.95 0.50-1.00 mg/dL Calcium 8.9 8.6-10.4 mg/dL eGFR by Creatinine 82 >59 mL/min/1.73m2 Protein 6.6 6.0-8.3 g/dL Albumin 4.0 3.5-5.3 g/dL Alkaline Phosphatase 75 35-121 IU/L ALT (SGPT) 28 <5-47 IU/L AST (SGOT) 14 <5-40 IU/L Bilirubin, Total 0.3 <0.2-1.2 mg/dL A/G Ratio 1.5 1.1-2.5 mg/dL P-Pap Test Thin Prep Reviewed date:05/17/2023 03:24:43 PM Interpretation: Performing Lab: Notes/Report: Pap Test Thin Prep Negative for Intraepithelial Lesion or Malignancy Source: Cervical LMP: 05/03/23 Date Taken: 05/12/2023 Specimen Type: ThinPrep Vial Date Reported: 05/16/2023 Clinical Data: Hormones: loestrin BCPs Last Pap: normal (2019) Cytotech: KRISH Castellanos(ASCP) Date Reported: 05/16/2023 Specimen Adequacy: Satisfactory for evaluation Endocervical/transforma tion zone component present General Categorization: NEGATIVE FOR INTRAEPITHELIAL LESION OR MALIGNANCY The following tests have been ordered as requested and a separate report will be issued: HPV High Risk Screen (TMA) This specimen has been analyzed by the ThinPrep Imaging System, an interactive computer system which assists the lab in the screening of ThinPrep Pap Test slides. Following imaging, the slide was reviewed by a Cloth Bale Header and/or Pathologist. End of Report Technical services provided by [facility], [facility], d/b/a [address] [place] [address] MD, Treating Plant Pumper. Case reviewed and diagnosis rendered at [facility], [facility], d/b/a [address] [place] [address] MD, Treating Plant Pumper. CONFIDENTIAL HPV High Risk Screen (TMA) Reviewed date:05/17/2023 03:24:43 PM Interpretation: Performing Lab: Notes/Report: HPV High Risk NOT DETECTED The human papillomavirus (HPV) High Risk Screen is an FDA-approved in-vitro amplified nucleic acid test for the qualitative detection of E6/E7 viral mRNA. Results should be correlated with patient presentation, history, cervical cytology and other clinical and laboratory findings. See [email or web address] /[email or web address]/[email or web address] d f for further information. Test performed by [facility], [facility], d/b/a [address] , [place] [address], Mindy Negro DO, Treating Plant Pumper. CBC Venipuncture (in house) Reviewed date:05/12/2023 01:00:34 PM Interpretation: Performing Lab: Notes/Report: wbc 6.2 3.5 - 10 lymph 19.5 15 - 50 mid 4.3 2 - 15 gran 76.2 35 - 80 rbc 4.24 3.5 - 5.5 hgb 13.0 11.5 - 16.5 hct 38.0 35 - 55 mcv 89.7 75 - 100 mch 30.6 25 - 35 mchc 34.1 31 - 38 platlet 363 100 - 400 REASON FOR REFERRAL No Information MEDICATIONS Medication SIG (Take, Route, Frequency, Duration) Notes Start Date End Date Status Contrave 8-90 MG 1 tablet in the am x 7 days, then 1 tab twice a day x 7 days, then 2 tab in the am and 1 tab in the pm x 7 days, then 2 tab twice a day Orally 02/08/2024 Active Microgestin 1.5/30 1.5-30 MG-MCG take 1 tablet by mouth once daily Orally Once a day for 30 day(s) Active Albuterol Sulfate HFA 108 (90 Base) MCG/ACT 1 puff Inhalation every 4 hrs, prn 05/02/2024 Active Bromfed DM 2-30-10 MG/5ML 5-10 mL Orally four times a day, prn 05/02/2024 Active Flonase Allergy Relief 50 MCG/ACT 1 spray in each nostril Nasally Once a day 05/02/2024 Active IMMUNIZATIONS Vaccine Route Administration Date Status Comme nts COVID 19 Telma Unknown 12/26/2020 Administered SOCIAL HISTORY Sex Assigned At : Social History Observation Description Sex Assigned At Unknown PROBLEMS Problem Type ICD Code Onset Dates Problem Status W/U Status Risk SNOMED Code Notes Problem BMI 33.0-33.9,adult (Z68.33) Active confirmed 122856198 Problem Irregular periods (N92.6) Active confirmed 90080401 Problem Obesity (BMI 30-39.9) (E66.9) Active confirmed 750275109 Problem Constipation, unspecified constipation type (K59.00) Active confirmed 85292762 Problem BMI 40.0-44.9, adult (Z68.41) Active confirmed 743196890 Problem Spotting (N92.0) Active confirmed 00007 05 VITAL SIGNS Heart Rate 104 /min 05/02/2024 Blood pressure diastolic 80 mm Hg 05/02/2024 Height 64 in 05/02/2024 Blood pressure systolic 112 mm Hg 05/02/2024 Weight 196.0 lbs 05/02/2024 BMI 33.64 kg/m2 05/02/2024 Encounters Encounter Location Date Provider Diagnosis [facility] [facility] [address] [place] [phone] 05/12/2023 Kasie Mao Routine physical examination Z00.00 ; Pap smear for cervical cancer screening Z12.4 and Rash and nonspecific skin eruption R21 [facility] [facility] [address] [place] [id number] 05/17/2023 Kasie Mao [facility] [facility] [address] [place], [place] [id number] 02/08/2024 Kasie Mao Routine physical examination Z00.00 ; Oral contraceptive pill surveillance Z30.41 and Obesity (BMI 30-39.9) E66.9 [facility] [address] [facility] [address] [place] [id number] 05/02/2024 Kasie Crowdy COVID-19 U07.1 ; Acu te bronchitis, unspecified organism J20.9 and Non-recurrent acute serous otitis media of both ears H65.03 ASSESSMENTS Encounter Date Diagnosis Assessment Notes Treatment Notes Treatment Clinical Notes 05/12/2023 Pap smear for cervical cancer screening (ICD-10 - Z12.4) 05/12/2023 Routine physical examination (ICD-10 - Z00.00) 05/02/2024 COVID-19 (ICD-10 - U07.1) 02/08/2024 Routine physical examination (ICD-10 - Z00.00) Healthy female, will have labs done at work in April. 02/08/2024 Oral contraceptive pill surveillance (ICD-10 - Z30.41) 05/02/2024 Acute bronchitis, unspecified organism (ICD-10 - J20.9) 05/12/2023 Rash and nonspecific skin eruption (ICD-10 - R21) 02/08/2024 Obesity (BMI 30-39.9 ) (ICD-10 - E66.9) 05/02/2024 Non-recurrent acute serous otitis media of both ears (ICD-10 - H65.03) PLAN OF TREATMENT Pending Test Test Name Order Date CXR 05/02/2024 CBC Fingerstick (in house) 05/02/2024 Next Appt Details Provider Name:Kasie Wallace Camron johnson, 05/02/2024 03:15:00 PM, [address] [facility], [address], [place], [place], [phone], Provider Name:Kasie Wallace Camron johnson, 08/08/2024 09:00:00 AM, [address] [facility], [address], [place], [place], [phone], Insurance Providers Payer Name Payer Address Payer Phone Subscriber Number Group Number Insured Name Patient Relationship to Insured Coverage Start Date Coverage End Date JESSICA ACUÑ[employer] [address] [place] [address] [id number] DONATO MORGAN Self - patient is the insured MEDICAL (GENERAL) HISTORY Surgical History Surgery Date(Month/Year) [place] Teeth Removal 03/01/12
--- OUTSIDE RECORDS SUMMARY | 2024-05-02 16:04 | XMS_ITS ---
[facility] [address] [place] [id number] Care Team Providers Care Material Liaison Name Role Phone [place] Sebastian Primary Care Provider Francisco Stratton Unavailable [phone] Kasie Mao Unavailable [phone] ALLERGIES Allergen (clinical drug ingredient) Drug/Non Drug [...] - 38 plat 296 100 - 400 REASON FOR VISIT possible ear infection MEDICATIONS Medication SIG (Take, Route, Frequency, Duration) [...] nostril Nasally Once a day 05/02/2024 Active VITAL SIGNS Weight 196.0 lbs 05/02/2024 Blood pressure systolic 112 mm Hg 05/02/20 24 Blood pressure diastolic 80 mm Hg 024 Heart Rate 104 /min 05/02/2024 Height 64 in 05/02/2024 BMI 33.64 kg/m2 05/02/2024 Encounters Encounter Location Date Provider Diagnosis [facility] [address] [place], [place] [phone] 05/02/2024 Kasie Mao COVID-19 U07.1 ; Acu te bronchitis, unspecified organism J20.9 and Non-recurrent acute serous otitis media of both ears H65.03 ASSESSMENTS Encounter Date Diagnosis Assessment Notes Treatment Notes Treatment Clinical Notes 05/02/2024 COVID-19 (ICD-10 - U07.1) 05/02/2024 Acute bronchitis, unspecified organism (ICD-10 - J20.9) 05/02/2024 Non-recurrent acute serous otitis media of both ears (ICD-10 - H65.03) PLAN OF TREATMENT Medication Medication Name Sig Start Date Stop Date Notes Albuterol Sulfate HFA 108 (9 0 Base) MCG/ACT 1 puff Inhalation every 4 hrs, prn 05/02/2024 Bromfed DM 2-30-10 MG/5ML 5-10 mL Orally four times a day, prn 05/02/2024 Flonase Allergy Relief 50 MCG/ACT 1 spray in each nostril Nasally Once a day 05/02/2024 Pending Test Test Name Order Date CXR 05/02/2024 CBC Fingerstick (in house) 05/02/2024 Next Appt Details Provider Name:Kasie johnson, 05/02/2024 03:15:00 PM, [address], [address], [place], [phone], Provider Name:Kasie Rodrigo Camron johnson, 08/08/2024 09:00:00 AM, [address], [address], [place], [place], [phone], History and Physical Notes * HPI (History of Present Illness) Category Sub-Category Detail Notes ENT/respiratory sore throat ear pain Short of Breath with exertion Chest Pain cough Fever
--- OUTSIDE RECORDS SUMMARY | 2024-05-02 16:04 | XMS_ITS ---
Author Organization [facility] Address [address] [facility] [place] 36 [facility] [address] [place] [id number] Care Team Providers Care Home Health Cna Name Role Phone [place] Sebastian Primary Care Provider Francisco Stratton Unavailable [phone] Kasie Mao Unavailable [phone] ALLERGIES Allergen (clinical drug ingredient) Drug/Non Drug Allergy documented on EMR Reaction Allergy Type Onset Date Status amoxicillin Amoxicillin Unknown Drug Allergy Act lina Penicillin Unknown Drug Allergy Active REASON FOR VISIT physical and discuss meds MEDICATIONS Medication SIG (Take, Route, Frequency, Duration) Notes Start Date End Date Status Contrave 8-90 MG 2 tab(s) orally 2 ti mes a day for 30 day(s) Not-Taking Contrave 8-90 MG 1 tablet in the am x 7 days, then 1 tab twice a day x 7 days, then 2 tab in the am and 1 tab in the pm x 7 days, then 2 tab twice a day Orally 02/08/2024 Active Microgestin 1.5/30 1.5-30 MG-MCG take 1 tablet by mouth once daily Orally Once a day for 30 day(s) Active VITAL SIGNS Weight 210 lbs 02/08/2024 Blood pressure systolic 110 mm Hg 02/08/20 24 Blood pressure diastolic 78 mm Hg 024 Heart Rate 86 /min 02/08/2024 Height 64 in 02/08/2024 BMI 36.04 kg/m2 02/08/2024 Encounters Encounter Location Date Provider Diagnosis [facility] [address] [id number] 02/08/2024 Kasie Mao Routine physical examination Z00.00 ; Oral contraceptive pill surveillance Z30.41 and Obesity (BMI 30-39.9) E66.9 ASSESSMENTS Encounter Date Diagnosis Assessment Notes Treatment Notes Treatment Clinical Notes 02/08/2024 Routine physical examination (ICD-10 - Z00.00) Healthy female, will have labs done at work in April. 02/08/2024 Oral contraceptive pill surveillance (ICD-10 - Z30.41) 02/08/2024 Obesity (BMI 30-39.9 ) (ICD-10 - E66.9) PLAN OF TREATMENT Medication Medication Name Sig Start Date Stop Date Notes Contrave 8-90 MG 1 tablet in the am x 7 days, then 1 tab twice a day x 7 days, then 2 tab in the am and 1 tab in the pm x 7 days, then 2 tab twice a day Orally 02/08/2024 Microgestin 1.5/30 1.5-30 MG-MCG take 1 tablet by mouth once daily Orally Once a day for 30 day(s) Treatment Notes Assessment Notes Routine physical examination Healthy fem meme, will have labs done at work in April. Next Appt Details Follow Up: 6 Months, Reason: Provider Name:Kasie johnson, 05/02/2024 03:15:00 PM, [address] [place] [address], [address], [place], [place], [phone], Provider Name:Kasie johnson, 08/08/2024 09:00:00 AM, [address] [place] [address], [place], [place], [id number], Progress Notes * Examination Category Sub-Category Detail Notes General Examination HEENT: unremarkable Heart: RSR Lungs: clear to auscultatio n Abdomen: bowel sounds present , soft and nontender, no organomegaly or masses, no guarding or rigidity Extremities: no leg edema General Appearance: NAD Skin: normal, no rash Neurologic Exam: Intact, gait normal Neck: supple, no lymphaden opathy Oral cavity: no lesions, mucosa m oist and WNL, no erythema Peripheral pulses: normal (2+) bilatera lly Chest: normal shape and exp ansion History and Physical Notes * HPI (History of Present Illness) Category Sub-Category Detail Notes HPI Patient is here today for a phys ical for work. Pt states want to go back on contrave
--- OUTSIDE RECORDS SUMMARY | 2024-05-02 16:04 | XMS_ITS ---
Author Organization [facility] Address [address] [facility] [address] [place] [phone] Care Team Providers Care Pigment And Lacquer Mixer Name Role Phone Sebastian Fritz Primary Care Provider Francisco Stratton Unavailable [phone] Kasie Mao Unavailable [phone] Encounters Encounter Location Date Provider Diagnosis [facility] [address] [place] [id number] 05/17/2023 Kasie Mao PLAN OF TREATMENT Next Appt Details Provider Name:Kasie johnson, 05/02/2024 03:15:00 PM, [address], [address], [place], [phone], Provider Name:Kasie johnson, 08/08/2024 09:00:00 AM, [address], [address], [place], [place], [phone],
--- NOTE | 2024-05-02 16:06 | XR_ITS ---
FINAL REPORT CLINICAL HISTORY: ACUTE BRONCHITIS states recent covid; pain on respiration FINDINGS: Two views of the chest were obtained. The heart size and pulmonary vascularity are within normal limits. The mediastinum is normal. No acute pulmonary abnormality is identified. There is no pneumothorax. The bony thorax is intact. IMPRESSION: No active cardiopulmonary disease. Reviewed, Interpreted and Dictated by Mike Ko III, MD Transcribed by Shantelle Sue Authenticated and [facility]
== END 2024-05-02 23:59 | disposition home or self-care (01) ==
LOC: RAD 16:03
PROVIDERS: PCP Family Medicine; Visit Provider Physician Assistant
DX: J20.9 Acute bronchitis, unspecified (principal)
CPT/HCPCS: 71046